=== PATIENT | female | born 1965 | race Caucasian/White ===

== ENCOUNTER 2021-03-29 20:40 | Emergency (ER) | payer MEDICAID ==
[2021-03-29] MEDS ORDERED: Sodium Chloride 0.9% 1,000 ML IV ONE (20:45)
[2021-03-29] MEDS ORDERED: Sodium Chloride 0.9% 10 ML Syringe FLUSH PRN (20:45)
[2021-03-29] MEDS ORDERED: Ketorolac 15 MG/ML SDV IVPUSH ONE (20:45)
[2021-03-29] MEDS ORDERED: Sodium Chloride 0.9% 2.5 ML Syringe FLUSH PRN (20:45)
[2021-03-29] MEDS ORDERED: Ondansetron 4 MG/2 ML SDV IVPUSH ONE (20:45)
[2021-03-29] MEDS ORDERED: Morphine 4 MG/ML Syringe IVPUSH ONE ×2 (20:45→22:56)
[2021-03-29] MEDS ORDERED: Iopamidol 755 MG/ML 500 ML Multipack Bottle IVPUSH STA (21:12)
[2021-03-29 21:17] LABS: BLOOD UREA NITROGEN,BUN 6 mg/dL (7.0-18.0); CARBON DIOXIDE,CO2 27.6 mmol/L (21.0-32.0); CHLORIDE,CL 107 mmol/L (98-107); GLUCOSE RANDOM 133 mg/dL (74-106); POTASSIUM,K 3.5 mmol/L (3.5-5.1); SODIUM,NA 147 mmol/L (136-145)
--- NOTE | 2021-03-29 21:55 | CT ---
INDICATION: Fall TECHNIQUE: CT head without contrast. COMPARISON: None available FINDINGS: There is mildly prominent for age cortical atrophy. The ventricles are within normal limits for the patient`s age. There is no mass effect or midline shift. There is no loss of antonio-white differentiation. There is no evidence of gross acute intracranial hemorrhage. Scattered punctate and curvilinear parenchymal densities are presumably artifactual. No acute calvarial fracture is seen. The visualized paranasal sinuses and mastoid air cells are clear. The visualized orbits are within normal limits. The adenoids are enlarged for age. IMPRESSION: No evidence of a gross acute intracranial hemorrhage, mass effect or loss of antonio-white differentiation. Please note that all CT scans at this facility use dose modulation, iterative reconstruction, and/or weight-based dosing when appropriate to reduce radiation dose to as low as reasonably achievable. Dictated by Silvestre Landaverde MD @ 03/29/2021 9:53:[address] Silvestre Landaverde @ Mar 29 2021 9:53PM
--- NOTE | 2021-03-29 21:57 | CR ---
Indication: Knee pain Technique: Right knee 2 views Comparison: None Findings: Patellofemoral compartment narrowing and spurring. Traction osteophytes at the patellar tendon insertion and quadriceps tendon insertion to the patella. Spurring of the tibial spines. Mild medial compartment narrowing and spurring. No fracture or joint effusion. Impression: No sign of acute osseous injury. Dictated by Calvin Nj MD @ 03/29/2021 9:57:[address] Calvin Nj @ Mar 29 2021 9:57PM
--- NOTE | 2021-03-29 22:02 | CT ---
INDICATION: Fall TECHNIQUE: CT cervical spine without contrast. COMPARISON: None available FINDINGS: There is straightening of the cervical lordosis. Slight anterolisthesis of C3 on C4 is probably degenerative. The craniocervical and atlantoaxial alignments are near anatomical. There is no evidence of an acute cervical spine fracture. There is no significant precervical soft tissue swelling. There are degenerative changes at multiple levels. IMPRESSION: No evidence of an acute cervical spine fracture. Please note that all CT scans at this facility use dose modulation, iterative reconstruction, and/or weight-based dosing when appropriate to reduce radiation dose to as low as reasonably achievable. Dictated by Silvestre Landaverde MD @ 03/29/2021 10:01:[address] Silvestre Landaverde @ Mar 29 2021 10:01PM
--- NOTE | 2021-03-29 22:20 | CT ---
INDICATION: Fall TECHNIQUE: CT chest was acquired with IV contrast. 100 mL of Isovue 370 administered. COMPARISON: None available FINDINGS: Cardiovascular structures: Normal cardiac size. An ectatic ascending aorta measuring 3.7 cm. Mild atherosclerotic changes, including coronary artery calcifications. Mediastinum and domingo: No mass or adenopathy. A small decompressed hiatal hernia. Lungs: Foci of mild subsegmental atelectasis in the right lung base. No consolidation. A 3-4 mm right middle lobe nodule on image 43. No pneumothorax. Pleura and pericardium: No pleural effusions. Small subpleural edema and tiny blood products in the posterolateral left upper to mid chest adjacent to rib fractures. Chest wall and axilla: No mass or adenopathy. Bones: Nondisplaced fractures of the anterior left 4th- 6th ribs and a small lucency in the anterior left 3rd rib which could represent a nondisplaced fracture. Slightly displaced fractures of the left posterolateral 4th and 5th ribs. Degenerative changes in the glenohumeral joints. IMPRESSION: Left rib fractures as described above. No pneumothorax. No evidence of a visceral or vascular injury in the chest. A 3-4 mm pulmonary nodule, statistically postinflammatory by size, without history of neoplasm or high risk factors. If indicated, a 12 month follow-up examination can be considered. Please note that all CT scans at this facility use dose modulation, iterative reconstruction, and/or weight-based dosing when appropriate to reduce radiation dose to as low as reasonably achievable. Dictated by Silvestre Landaverde MD @ 03/29/2021 10:19:[address] Silvestre Landaverde @ Mar 29 2021 10:19PM
[2021-03-29] MEDS ORDERED: Acetaminophen 325 MG Tab PO ONE ×2 (22:36→22:37)
[2021-03-29] MEDS ORDERED: Lidocaine 5% 700 MG Patch TRDERM ONE (22:38)
--- NOTE | 2021-03-29 22:41 | CT ---
INDICATION: Fall TECHNIQUE: CT abdomen and pelvis acquired with IV contrast. 100 mL of Isovue 370 administered. COMPARISON: None available FINDINGS: Liver: Hepatic steatosis. A 2.0 x 0.9 cm ovoid low-density focus/lesion in the anterior aspect of the lateral segment of the left hepatic lobe, extending to the anterior hepatic capsule, without adjacent free fluid. Spleen: Unremarkable. Pancreas: Unremarkable. Gallbladder and bile ducts: Possible gallbladder sludge. Adrenal glands: Unremarkable. Kidneys: No hydronephrosis. A 1-2 mm nonobstructive right renal upper pole calcification. GI tract: No bowel obstruction. A normal appendix. Sigmoid diverticulosis without diverticulitis. Vascular structures: Atherosclerotic changes. Lymph nodes: Unremarkable. Miscellaneous: No significant free fluid or free air. Pelvic Organs: Unremarkable. Bones: Degenerative changes in the lumbar spine. Mild anterior compression deformity of the L2 vertebral body IMPRESSION: A 2 cm ovoid low-density focus in the anterior left hepatic lobe extending to the anterior hepatic capsule, suggestive of a nonspecific lesion. A hepatic laceration is considered less likely given the lack of adjacent free fluid or significant overlying soft tissue injury, however clinical correlation is advised. This lesion is not adequately evaluated and follow-up evaluation with sonography or contrast MRI is recommended. Otherwise, no CT evidence of a gross visceral or vascular injury in the abdomen and pelvis. A mild L2 compression deformity which could be chronic. Correlate clinically. Sigmoid diverticulosis without diverticulitis. Please note that all CT scans at this facility use dose modulation, iterative reconstruction, and/or weight-based dosing when appropriate to reduce radiation dose to as low as reasonably achievable. Dictated by Silvestre Landaverde MD @ 03/29/2021 10:40:[address] Silvestre Landaverde @ Mar 29 2021 10:40PM
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
== END 2021-03-29 23:27 | disposition home or self-care (01) ==
LOC: MW.ED 20:40
DX: S22.42XA Multiple fractures of ribs, left side, initial encounter for closed fracture (principal); S81.011A Laceration without foreign body, right knee, initial encounter; S70.02XA Contusion of left hip, initial encounter; I10 Essential (primary) hypertension; E11.9 Type 2 diabetes mellitus without complications; J44.9 Chronic obstructive pulmonary disease, unspecified; F10.129 Alcohol abuse with intoxication, unspecified; Z91.81 History of falling; Y90.8 Blood alcohol level of 240 mg/100 ml or more; Y04.0XXA Assault by unarmed brawl or fight, initial encounter
CPT/HCPCS: 12001; 36415; 70450; 71260; 72125; 73560; 74177; 80053; 80307; 85025; 96374; 96375; 96376; 99285; A9270; J1885; J2270; J2405; J7030; Q9967

== ENCOUNTER 2022-08-14 20:25 | Emergency (ER) | payer MEDICAID ==
[2022-08-14] MEDS ORDERED: Ibuprofen 800 MG Tab PO ONE (22:05)
== END 2022-08-14 21:55 ==
LOC: MW.ED 20:25
DX: Z02.89 Encounter for other administrative examinations (principal)
CPT/HCPCS: 99282; A9270

== ENCOUNTER 2023-05-16 00:12 | Emergency (ER) | payer MEDICAID ==
[2023-05-16] MEDS ORDERED: Famotidine 20 MG/2 ML SDV IVPUSH ONE (02:29)
[2023-05-16] MEDS ORDERED: Methocarbamol 750 MG TAB PO STA ×2 (02:29→03:10)
[2023-05-16] MEDS ORDERED: Sodium Chloride 0.9% 10 ML Syringe FLUSH PRN (02:29)
[2023-05-16] MEDS ORDERED: Sodium Chloride 0.9% 2.5 ML Syringe FLUSH PRN (02:29)
[2023-05-16] MEDS ORDERED: Lidocaine 4% 1 each Patch TOP SCH (02:30)
[2023-05-16 03:10] LABS: BASOPHILS PERCENT AUTO 0.2 % (0.0-1.5); EOSINOPHILS PERCENT AUTO 0.1 % (0.0-7.0); HEMATOCRIT 54.3 % (36.0-46.0); HEMOGLOBIN 18.5 g/dL (12.0-16.0); LYMPHOCYTES ABSOLUTE AUTO 2.6 K/uL (0.6-2.4); LYMPHOCYTES PERCENT AUTO 18.7 % (16.0-40.0); MEAN CORPUSCULAR HEMOGLOBIN 33.8 pg (27.0-32.0); MEAN CORPUSCULAR HGB CONC 34.1 g/dL (31.0-37.0); MEAN CORPUSCULAR VOLUME 99.3 fL (80.0-98.0); MONOCYTES ABSOLUTE AUTO 0.8 K/uL (0.0-0.8); MONOCYTES PERCENT AUTO 5.4 % (0.0-15.0); NEUTROPHILS ABSOLUTE AUTO 10.6 K/uL (1.4-5.7); NEUTROPHILS PERCENT AUTO 75.6 % (48.0-80.0); NRBC ABSOLUTE 0 K/uL; PLATELET COUNT,PLT 288 K/uL (150-400); RED BLOOD CELL COUNT 5.47 M/uL (4.30-5.90)
[2023-05-16 03:19] LABS: INR 1.21 (0.86-1.11)
[2023-05-16] MEDS ORDERED: Acetaminophen 500 MG Tab PO STA (03:29)
[2023-05-16 03:31] LABS: BILIRUBIN TOTAL 0.4 mg/dL (0.2-1.0); CALCIUM 9.1 mg/dL (8.5-10.1); CARBON DIOXIDE,CO2 25.8 mmol/L (21.0-32.0); CREATININE 0.8 mg/dL (0.6-1.0); EST CRCL DRUG DOSING (CG) 76.36 mL/min; POTASSIUM,K 3.8 mmol/L (3.5-5.1); PROTEIN TOTAL,TP 7.9 g/dL (6.4-8.2)
[2023-05-16] MEDS ORDERED: Ketorolac 30 MG/ML SDV IVPUSH ONE (04:27)
== END 2023-05-16 04:55 ==
LOC: MW.ED 00:12
DX: M54.50 Low back pain, unspecified (principal); R51.9 Headache, unspecified; I10 Essential (primary) hypertension; Z02.89 Encounter for other administrative examinations; Y04.0XXA Assault by unarmed brawl or fight, initial encounter
CPT/HCPCS: 36415; 70450; 72125; 80053; 83690; 84484; 85025; 85610; 93005; 96374; 96375; 99284; A9270; J1885; J3490; 93010

== ENCOUNTER 2024-10-10 15:11 | Emergency (ER) | payer OTHER, MEDICAID ==
[2024-10-10] MEDS: Cyclobenzaprine 10 MG Tab PO STA (17:18)
[2024-10-10] MEDS: traMADol 50 MG Tab PO STA (17:20)
== END 2024-10-10 17:48 | disposition left against medical advice (07) ==
LOC: MW.ED 15:11
DX: M79.662 Pain in left lower leg (principal); I10 Essential (primary) hypertension; Z79.51 Long term (current) use of inhaled steroids; Z79.899 Other long term (current) drug therapy; Z75.8 Other problems related to medical facilities and other health care
CPT/HCPCS: 93970; 99283; A9270

== ENCOUNTER 2024-10-10 21:59 | Emergency (ER) | payer OTHER, MEDICAID | END 2024-10-10 23:14 | disposition home or self-care (01) | LOC: MW.ED 21:59 | DX: M79.605 Pain in left leg (principal); I10 Essential (primary) hypertension; F17.210 Nicotine dependence, cigarettes, uncomplicated; Z76.5 Malingerer [conscious simulation]; Z79.51 Long term (current) use of inhaled steroids; Z79.899 Other long term (current) drug therapy | CPT/HCPCS: 99283 ==

== ENCOUNTER 2025-03-04 11:05 | Emergency (ER) | payer MEDICAID ==
[2025-03-04] MEDS: cloNIDine 0.1 MG Tab PO ONE (11:29)
[2025-03-04] MEDS: Hydrochlorothiazide 25 MG Tab PO ONE (11:30)
[2025-03-04 12:11] LABS: CALCIUM 8.7 mg/dL (8.5-10.1); CARBON DIOXIDE,CO2 29.7 mmol/L (21.0-32.0); CREATININE 0.8 mg/dL (0.6-1.0); EST CRCL DRUG DOSING (CG) 74.54 mL/min
== END 2025-03-04 12:26 | disposition home or self-care (01) ==
LOC: MW.ED 11:05
DX: I10 Essential (primary) hypertension (principal); E78.00 Pure hypercholesterolemia, unspecified; Z91.148 Patient's other noncompliance with medication regimen for other reason
CPT/HCPCS: 36415; 80048; 99283; A9270